=== PATIENT | male | born 1945 | race Caucasian/White ===

== ENCOUNTER 2016-10-07 17:04 | Inpatient (IN) | payer MEDICARE, OTHER ==
--- NOTE | ~2016-10-07 | CN ---
Consultation Report [facility] [address] [place]. [address] NAME: ALEXANDER LUNA : 45 STATUS : ADM Dede PAT#: [id number] AGE: 71 ADM/REG DATE : 10/07/16 MR#: [id number] REPORT SERV DATE: 10/08/16 DICTATED BY: ROSALIO HERNANDES DATE: 10/08/16 REPORT STATUS : Draft TRANSCRIBED BY: MODDontae DATE: 10/08/16 CONSULTATION NOTE DATE OF CONSULTATION: REASON FOR CONSULTATION: Consult coming from Cintia Camarena for abdominal pain and Parkinson. HISTORY OF PRESENT ILLNESS: The patient has a history of Parkinson's and has been following up with a neurologist who specializes in Parkinson's. He was tried on several medications before and now he is on carbidopa-levodopa. The patient has been having chest pains for about a week now and poor appetite and fatigue. He said that the pain is dull, but sometimes becoming sharp, associated with shortness of breath. The chart is saying that he was having some abdominal pain, and when I kept on asking this, they keep on denying it and the actually got rattled and said it has always been the chest and that is why we are here. The patient has a history of constipation and has been taking medications for it. His last bowel movement was yesterday and it was hard. There was no note of any nausea or vomiting. There is some cough and occasional shortness of breath. The patient has some nausea, but no vomiting. There is no loss of consciousness, fever, chills, or urinary changes. REVIEW OF SYSTEMS: The rest of the 14-point review of systems is negative except as above. Of note, the patient went to the [place], and he was sent here for further evaluation and was admitted to the [facility]. PAST MEDICAL HISTORY: Includes Parkinson's, anxiety, partial colectomy for polyps, appendectomy, and bilateral hernia repair. ALLERGIES: HE HAS NO KNOWN DRUG ALLERGIES. MEDICATIONS: Include Aricept, Zoloft, turmeric capsule, and carbidopa-levodopa. FAMILY HISTORY: Dad had an AL and bypass in his 60s and cancer and in his 90s. SOCIAL HISTORY: The patient does not smoke, drink, or use recreational drugs. PHYSICAL EXAMINATION: GENERAL: The patient is alert and oriented x3, not in cardiopulmonary distress. VITAL SIGNS: His vital signs include a saturation of 94% on room air, blood pressure of 149/65, temperature of 98.2, pulse rate of 87, and respiration of 22. HEENT: One [place] conjunctivae. Anicteric sclerae. No pharyngeal erythema. NECK: He has supple neck. No JVD or carotid bruits. No lymphadenopathy. LUNGS: He has clear lungs. No rales. No wheezes. Consultation Report [address] [place]. [address] NAME: ALEXANDER LUNA : 45 STATUS : ADM Dede PAT#: [id number] AGE: 71 ADM/REG DATE : 10/07/16 MR#: [id number] REPORT SERV DATE: 10/08/16 DICTATED BY: ROSALIO HERNANDES DATE: 10/08/16 REPORT STATUS : Draft TRANSCRIBED BY: MAURICIO DATE: 10/08/16 CARDIOVASCULAR: Regular rate and rhythm. No murmurs appreciated. ABDOMEN: Positive bowel sounds. Soft and nontender. No masses fair pulses. No edema. NEURO: Exam is nonlocalizing, however, he does have tremors, mainly in his upper extremities, right greater than the left. LABORATORY DATA: Reveals a chemistry, TSH, troponin, and CBC all within normal limits except for a mild normocytic anemia with an H and H of 10.6 and 31.9. CAT scan shows cardiomegaly, pericardial effusion and pleural effusions with atelectatic lung on the left side, minimal inflammatory changes suggested in the right upper quadrant and on some bowel loops, no mechanical obstruction, slightly prominent appearance of the gallbladder, multiple hepatic cysts. ASSESSMENT: 1. Chest pain. 2. Pericardial effusion. 3. Bilateral pleural effusions. 4. Prominence of the gallbladder, questionable abdominal pain. 5. Parkinson's. PLAN: I would defer the cardiac problems to you. The patient and family denies abdominal pain at present, my physical exam and CT scans are unremarkable except for some prominence of the gallbladder wall. We will check the LFTs and observe for now. The patient already seeing a Parkinson's specialist and has tried several medications before. We would continue the present levodopa-carbidopa and have him follow up with neurologist. Thank you for the consult. I will follow the patient with you. DAVID/MAURICIO Rosalio Hernandes M.D. / [id number] CC: Cintia Camarena, STEFANY, DISTANCE LEARNING UNIT LEADER-BC John Palomino MD
--- NOTE | ~2016-10-07 | HP ---
History And Physical [id number] [facility] [place]. [address] NAME: ALEXANDER LUNA : 45 STATUS : ADM Dede PAT#: [id number] AGE: 71 ADM/REG DATE : 10/07/16 MR#: [id number] REPORT SERV DATE: 10/08/16 DICTATED BY: BERNICE QUAN DATE: 10/08/16 REPORT STATUS : Draft TRANSCRIBED BY: MODDontae DATE: 10/08/16 DATE OF ADMISSION: 10/07/2016 NEUROLOGY: Reese Rosado M.D. for Parkinson's, [facility]. CHIEF COMPLAINT: Epigastric and chest discomfort. HISTORY OF PRESENT ILLNESS: A very pleasant 71-year-old white gentleman with no known history of CAD, followed at the [facility] and in [place], [place], for his Parkinson's every three months, presents to our facility with vague complaints of episodic epigastric pain and episodes of chest pressure with his daughter who is present at bedside provides much of the information as well as the patient. There is a report of two weeks of poor appetite, fatigue, and the patient reports recent indigestion for which he has taken Tums with little improvement. The patient also indicates on his lower left chest episodes of chest pain that apparently are persistent. His daughter reports that on the past two Sundays at Friday dinner he has had no appetite, has eaten poorly. She reports he has been fatigued, pale, and at times has had "blue lips." The patient describes his chest pain as a "needle in my left side that goes through the middle of my stomach." He also indicates with two fingers a pinpoint area of his left chest that is at times worse with a cough and not reproducible on exam. When asked to rate his chest pain on a scale of 1-10, he states it is "pretty jamil." He denies any recent fall. No recent nausea or vomiting. He does state that he had a "dark solid stool last night" while here at the hospital, but denies any mae bleeding, although he does state that he has a history of hemorrhoids. The patient was taken to the local [facility] yesterday for a checkup given his these longstanding complaints. He was there from 0930 hours to 1530 hours at some point they performed an EKG and felt it more prudent that he come to the emergency room for further evaluation and treatment. The patient denies any personal history of myocardial infarction, stroke, DVT, or pulmonary embolus. The patient denies any recent fever or chills. No palpitations. No syncopal episodes. Denies PND or orthopnea. PAST MEDICAL HISTORY: 1. Parkinson's. 2. Anxiety. 3. Denies hypertension, dyslipidemia, or diabetes. 4. Positive family history for early CAD. PAST SURGICAL HISTORY: 1. Partial colectomy secondary to polyps. 2. Appendectomy. 3. Hernia repair. SOCIAL HISTORY: He is with three children. He is a retired maintenance team leader. Does not have a structured exercise routine, although he is active. Denies tobacco, alcohol, or illicits. History And Physical [address] [address] NAME: ALEXANDER LUNA : 45 STATUS : ADM Dede PAT#: [id number] AGE: 71 ADM/REG DATE : 10/07/16 MR#: [id number] REPORT SERV DATE: 10/08/16 DICTATED BY: BERNICE QUAN DATE: 10/08/16 REPORT STATUS : Draft TRANSCRIBED BY: MAURICIO DATE: 10/08/16 FAMILY HISTORY: Father with a heart attack and bypass in his 60s with a history of cancer in his 90s. REVIEW OF SYSTEMS: A 14-point review of systems performed, significant for HPI including snores per report with no formal sleep study. Reports his home dry weight of 165 pounds, although he states he may have lost approximately 5 pounds due to poor appetite recently. Otherwise, complete review of systems obtained and negative. ALLERGIES: NO KNOWN DRUG ALLERGIES. HOME MEDICATIONS: 1. Aricept 5 mg nightly. 2. Zoloft 200 mg daily. 3. Turmeric capsule daily. 4. Carbidopa 100 mg three times daily. PHYSICAL EXAMINATION: BLOOD PRESSURE: Bilateral blood pressures on arrival, right 112/64 and left 107/64, this morning 119/71. PULSE: 82. RESPIRATORY RATE: 16. TEMPERATURE: 98.2. O2 saturation 95% on room air. HEIGHT: 6 feet 0 inches. WEIGHT: 165 pounds. BMI: 22. GENERAL: Cooperative, in no apparent distress. HEENT: Pupils 2 mm. Sclera nonicteric. Nares patent. Moist mucous membranes. No xanthelasma. NECK: Trachea midline. No thyromegaly. No JVD. No bruits. LYMPH: No cervical lymphadenopathy. No supraclavicular lymphadenopathy. RESPIRATORY: Unlabored respirations. Breath sounds clear bilaterally to posterior auscultation. No wheezes or rhonchi. CARDIOVASCULAR: Regular rate. Extremities without edema. Pulses 2+ bilaterally. 1 to 2/6 murmur at the apex left midclavicular line. ABDOMEN: Soft, nontender, and nondistended. Normal bowel sounds auscultated throughout. No organomegaly. Firm to palpation on exam. SKIN: Warm and dry extremities. No pallor or cyanosis. PSYCHIATRIC: Appropriate affect. Alert and oriented x3. NEURO: Tremors activity bilateral upper extremities. Alert oriented x3. LABORATORY DATA: Troponin less than 0.02 x3. Potassium 3.7, BUN 17, creatinine 0.93, glucose 111, and magnesium 2.2. BNP 147.5. WBC 7.7, hemoglobin 9.9, hematocrit 29.8 (no previous labs for comparison), and platelet count 290. EKG sinus rhythm. Nonspecific T-waves. ASSESSMENT AND PLAN: 1. Atypical chest pain. The patient has been observed in the short-stay, three sets of cardiac markers negative. EKG appears stable. The patient will be held n.p.o. for History And Physical [address] [address] NAME: ALEXANDER LUNA : 45 STATUS : ADM Dede PAT#: [id number] AGE: 71 ADM/REG DATE : 10/07/16 MR#: [id number] REPORT SERV DATE: 10/08/16 DICTATED BY: BERNICE QUAN DATE: 10/08/16 REPORT STATUS : Draft TRANSCRIBED BY: MODL DATE: 10/08/16 now. I will discuss with rounding certified professional coder the need for further cardiac testing. Further recommendations forthcoming. 2. Murmur. We will check an echocardiogram today. 3. Epigastric discomfort. I will check amylase and lipase. Check a CT of abdomen and pelvis without contrast. Recheck an H and H, guaiac stools. 4. Parkinson's. Safety measures in place. Continue home medications. 5. We will discuss all with rounding certified professional coder and further recommendations forthcoming. MARIELA/MAURICIO STEFANY Ch, RADIATOR SPECIALIST-BC / [id number] CC: STEFANY Ch, RADIATOR SPECIALIST-BC John Palomino MD
--- NOTE | ~2016-10-07 | DS ---
Discharge Summary [id number] [place]. [address] NAME: ALEXANDER LUNA : 45 STATUS : DIS IN PAT#: [id number] AGE: 71 ADM/REG DATE : 10/10/16 MR#: [id number] REPORT SERV DATE: 10/12/16 DICTATED BY: ROSALIO HERNANDES DATE: 10/11/16 REPORT STATUS : Draft TRANSCRIBED BY: MODL DATE: 10/11/16 ADMISSION DATE: 10/10/2016 DISCHARGE DATE: 10/11/2016 FINAL DIAGNOSES: 1. Bilateral pleural effusion, questionable etiology, status post left thoracentesis. 2. Pericardial effusion. 3. Chest pain secondary to above. 4. Parkinson's. 5. Anxiety. DIAGNOSTIC EXAMS: Chest x-ray showing left basilar consolidation with left pleural effusion, cardiomegaly. CTA of the chest showing respiratory motion degraded exam, limiting assessment of segmental and subsegmental pulmonary arteries in the bilateral lower lung murry. No definite pulmonary embolism. Cardiomegaly with moderate large pericardial effusion up to 2.3 cm in diameter along the right atrium, bibasilar near segmental size atelectasis with underlying small pleural effusion. CAT scan of the abdomen and pelvis showing cardiomegaly, pericardial effusion and pleural effusion with atelectatic lung on the left side. Minimal inflammatory changes suggested in the right upper quadrant around some bowel loops, no mechanical obstruction, slightly prominent appearance of the gallbladder, multiple hepatic cysts. Abdominal ultrasound, sonographic normal appearance of the gallbladder, increased right cortical echotexture is compatible with a component of medical renal disease, benign hepatic cyst. Echocardiogram showing low normal left ventricular systolic function with EF of 50%, dilated right-sided structures with preserved systolic function, mild pulmonary hypertension with mild tricuspid regurg, small pericardial effusion without hemodynamic significance, large left-sided pleural effusion, mildly elevated right atrial and central venous pressures. Chest x-ray post thoracentesis showing cardiomegaly, small amount of left pleural effusion and atelectasis. HOSPITAL COURSE: Please refer to the H and P done by myself dated on 10/08/2016. Briefly, this is a 71-year-old male with a history of Parkinson's and a history of previous pericardial effusion. He has been having chest pains for about a week with poor appetite and fatigue. The patient was then admitted through the [facility] and they did the above tests because of the echo showing only minimal pericardial effusion with no hemodynamic compromise. They transferred the patient to my service. We got a thoracentesis of the left side which yielded 450 mL of fluid which is borderline exudate. We checked for pathology which was negative for malignancy and negative for infection. The patient got relief afterwards and with the remaining pain on pleurisy improves on ibuprofen. We sent for an RA that was negative. KATHY is still pending at this time. He did not have any fever, chills, sweats, and the vital signs remained stable and saturating at 95% on room air. The patient is doing better after the thoracentesis with no evidence of any pneumothorax. I discussed the case with the patient, and daughter and they agree that the patient is ready to go home, however, they are requesting for outpatient followup outside of the [place]. I am going to have my pillowcase maker arrange for a followup with Dr. Wayne of Cardiology in a month's time with repeat echocardiogram prior to the followup. Follow up with our Pulmonary Clinic here in [facility] in about a month and also with Neurology with [facility] or Dr. Hung Summary [address] [address] NAME: ALEXANDER LUNA : 45 STATUS : DIS IN PAT#: [id number] AGE: 71 ADM/REG DATE : 10/10/16 MR#: [id number] REPORT SERV DATE: 10/12/16 DICTATED BY: ROSALIO HERNANDES. DATE: 10/11/16 REPORT STATUS : Draft TRANSCRIBED BY: MAURICIO DATE: 10/11/16 Austin valadez Douglas in about a month. The patient will need to follow up with his PCP in the [place], John Palomino in a week's time. The patient will now be discharged on the following medications: Sinemet 25/100 three times a day, Aricept 2.5 mg at bedtime, Zoloft 200 mg twice a day, ibuprofen 200 mg t.i.d. p.r.n. pleuritic chest pain, and Robitussin DM for cough. This has been explained to them at length. TIME SPENT: 40 minutes. DICTATED BY: Dotty James/MAURICIO Rosalio Hernandes M.D. / [id number] CC: Dotty James MD
[2016-10-07 18:34] LABS: BASOPHILS 0.4 %; BASOPHILS ABSOLUTE 0.03 10/3/uL (0.0-0.16); EOSINOPHILS 1.8 %; EOSINOPHILS ABSOLUTE 0.14 10/3/uL (0.0-0.53); ER CBC TAT 0 Hrs 03 Mins; HEMATOCRIT 29.8 % (40.0-51.0); HEMOGLOBIN 9.9 g/dL (13.6-17.8); IMMATURE GRANULOCYTES 0.4 %; IMMATURE GRANULOCYTES ABSOLUTE 0.03 10/3/uL (0.0-0.11); LYMPHOCYTES 14.3 %; LYMPHOCYTES ABSOLUTE 1.11 10/3/uL (0.67-4.30); MEAN CORPUS HGB CONC 33.2 g/dL (32.0-36.0); MEAN CORPUSCULAR HEMOGLOB 29.1 pg (26.0-34.0); MEAN CORPUSCULAR VOLUME 87.6 fL (80-100); MEAN PLATELET VOLUME 8.6 fL (9.2-13.0); MONOCYTES 14.1 %; MONOCYTES ABSOLUTE 1.09 10/3/uL (0.21-1.20); NEUTROPHILS ABSOLUTE 5.34 10/3/uL (2.02-8.40); PLATELET COUNT 290 10/3/uL (150-400); RBC DISTRIBUTION WIDTH 13.4 % (12.0-16.0); WHITE BLOOD CELLS 7.7 10/3/uL (4.5-10.5)
[2016-10-07 18:35] LABS: MANUAL DIFF NO %
[2016-10-07 18:42] LABS: INTERNATIONAL NORMAL RATI 1.3 UNITS (-); PROTIME (NOT ORD) 16.1 SEC (12.0-14.5)
[2016-10-07 18:43] LABS: PARTIAL THROMBO TIME 40.5 SEC (22.5-37.2)
[2016-10-07 18:50] LABS: BUN (BLOOD UREA NITROGEN) 16 MG/DL (6-23); CALCIUM, SERUM 8.4 MG/DL (8.5-10.4); CHEST PAIN PROFILE TAT 0 Hrs 19 Mins; CHLORIDE, SERUM 105 MMOL/L (96-112); CO2 (CARBON DIOXIDE) 31 MMOL/L (24-34); CREATININE 0.93 MG/DL (0.70-1.30); GFR AFRICAN AMERICAN 95 ML/MIN (>=60); GFR NON AFRICAN AMERICAN 82 ML/MIN (>=60); GLUCOSE, SERUM 124 MG/DL (60-99); POTASSIUM, SERUM 3.5 MMOL/L (3.5-5.3); SODIUM, SERUM 140 MMOL/L (135-148); TROPONIN I <0.02 NG/ML (<0.05)
[2016-10-07] MEDS ORDERED: ARICEPT5 PO (22:13)
[2016-10-07] MEDS ORDERED: ZOL100 PO (22:13)
[2016-10-07] MEDS ORDERED: TURMERIC PO (22:14)
[2016-10-07] MEDS ORDERED: CARBIDOPA-LEVODOPA PO (22:35)
[2016-10-08 04:52] LABS: BUN (BLOOD UREA NITROGEN) 17 MG/DL (6-23); CALCIUM, SERUM 8.4 MG/DL (8.5-10.4); CHLORIDE, SERUM 106 MMOL/L (96-112); CO2 (CARBON DIOXIDE) 28 MMOL/L (24-34); CREATININE 0.93 MG/DL (0.70-1.30); GFR AFRICAN AMERICAN 95 ML/MIN (>=60); GFR NON AFRICAN AMERICAN 82 ML/MIN (>=60); GLUCOSE, SERUM 111 MG/DL (60-99); POTASSIUM, SERUM 3.7 MMOL/L (3.5-5.3); SODIUM, SERUM 140 MMOL/L (135-148)
[2016-10-08 08:05] LABS: HEMATOCRIT 30.5 % (40.0-51.0); HEMOGLOBIN 10.2 g/dL (13.6-17.8)
[2016-10-08 10:35] LABS: FREE T4 1.02 NG/DL (0.76-1.46)
[2016-10-08] MEDS ORDERED: SIN25 PO (15:09)
[2016-10-08] MEDS ORDERED: ZOL100 PO (15:09)
[2016-10-08 15:55] LABS: HEMATOCRIT 31.9 % (40.0-51.0); HEMOGLOBIN 10.6 g/dL (13.6-17.8)
[2016-10-08 19:00] LABS: ALBUMIN 2.5 G/DL (3.5-5.0); ALKALINE PHOSPHATASE 91 U/L (45-117); SGOT(AST) 26 U/L (5-40); SGPT(ALT) 38 U/L (5-65); TOTAL BILIRUBIN 0.3 MG/DL (0-1.2); TOTAL PROTEIN 6.7 G/DL (6.0-8.5)
[2016-10-08 19:04] LABS: DIRECT BILIRUBIN < 0.1 MG/DL (0.0-0.4); INDIRECT BILIRUBIN(NOT ORDER) 0.2 MG/DL (0.1-0.9)
[2016-10-09 04:46] LABS: HEMATOCRIT 29.9 % (40.0-51.0); HEMOGLOBIN 10.1 g/dL (13.6-17.8)
[2016-10-09 05:03] LABS: BUN (BLOOD UREA NITROGEN) 15 MG/DL (6-23); CALCIUM, SERUM 8.2 MG/DL (8.5-10.4); CHLORIDE, SERUM 102 MMOL/L (96-112); CO2 (CARBON DIOXIDE) 27 MMOL/L (24-34); CREATININE 0.92 MG/DL (0.70-1.30); GFR AFRICAN AMERICAN 97 ML/MIN (>=60); GFR NON AFRICAN AMERICAN 83 ML/MIN (>=60); GLUCOSE, SERUM 94 MG/DL (60-99); POTASSIUM, SERUM 3.8 MMOL/L (3.5-5.3); SODIUM, SERUM 137 MMOL/L (135-148)
[2016-10-09 12:09] LABS: INTERNATIONAL NORMAL RATI 1.2 UNITS (-); PARTIAL THROMBO TIME 37.7 SEC (22.5-37.2); PROTIME (NOT ORD) 14.7 SEC (12.0-14.5)
[2016-10-09 15:06] LABS: GLUCOSE BODY FL (NOT ORD) 96 MG/DL; LDH BODY FLUID (NOT ORD) 79 U/L
[2016-10-09 16:18] LABS: BF TOTAL CELL CT (NOT ORD 1031 /MM3; BODY FLUID RBC (NOT ORD) 507 /MM3
[2016-10-09 16:27] LABS: BD FL LYMPH (NOT ORD) 16 %; BF BASO (NOT OF) 0 %; BF LARGE MONONUCLEAR 57 %; BODY FLUID EOS (NOT ORD) 0 %; BODY FLUID SEG (NOT ORD) 27 %
[2016-10-09 16:38] LABS: BD FL SOURCE (NOT ORD) THORACENTESIS
[2016-10-10 11:33] LABS: BASOPHILS 0.3 %; BASOPHILS ABSOLUTE 0.02 10/3/uL (0.0-0.16); EOSINOPHILS 2.1 %; EOSINOPHILS ABSOLUTE 0.16 10/3/uL (0.0-0.53); HEMATOCRIT 30.5 % (40.0-51.0); HEMOGLOBIN 10.1 g/dL (13.6-17.8); IMMATURE GRANULOCYTES 0.3 %; IMMATURE GRANULOCYTES ABSOLUTE 0.02 10/3/uL (0.0-0.11); LYMPHOCYTES 12.3 %; LYMPHOCYTES ABSOLUTE 0.96 10/3/uL (0.67-4.30); MEAN CORPUS HGB CONC 33.1 g/dL (32.0-36.0); MEAN CORPUSCULAR HEMOGLOB 29.2 pg (26.0-34.0); MEAN CORPUSCULAR VOLUME 88.2 fL (80-100); MEAN PLATELET VOLUME 8.1 fL (9.2-13.0); MONOCYTES 13.6 %; MONOCYTES ABSOLUTE 1.06 10/3/uL (0.21-1.20); NEUTROPHILS 71.4 %; NEUTROPHILS ABSOLUTE 5.56 10/3/uL (2.02-8.40); PLATELET COUNT 351 10/3/uL (150-400); RBC DISTRIBUTION WIDTH 13.4 % (12.0-16.0); RED CELL COUNT 3.46 10/6/uL (4.7-6.1); WHITE BLOOD CELLS 7.8 10/3/uL (4.5-10.5)
[2016-10-10 11:35] LABS: MANUAL DIFF NO %
[2016-10-10 11:47] LABS: BUN (BLOOD UREA NITROGEN) 15 MG/DL (6-23); CALCIUM, SERUM 8.5 MG/DL (8.5-10.4); CHLORIDE, SERUM 102 MMOL/L (96-112); CO2 (CARBON DIOXIDE) 31 MMOL/L (24-34); CREATININE 0.87 MG/DL (0.70-1.30); GFR AFRICAN AMERICAN 101 ML/MIN (>=60); GFR NON AFRICAN AMERICAN 87 ML/MIN (>=60); GLUCOSE, SERUM 106 MG/DL (60-99); POTASSIUM, SERUM 3.7 MMOL/L (3.5-5.3); SODIUM, SERUM 138 MMOL/L (135-148)
[2016-10-10 17:29] LABS: TOTAL PROTEIN 6.5 G/DL (6.0-8.5)
[2016-10-11 08:15] LABS: PROTEIN BODY FLUID 3.6 G/DL
[2016-10-11 09:59] LABS: ANA PATTERN SPECKLED
[2016-10-11] MEDS ORDERED: ADVIL (10:43)
[2016-10-11] MEDS ORDERED: GGEXPUD (10:43)
== END 2016-10-11 15:17 | disposition home or self-care (01) | DRG 187 ==
LOC: ER 17:04 → SSU1 21:56 → 7NO 10-09 16:53
PROVIDERS: Clinical Nurse Specialist; Emergency Medicine; Internal Medicine
PROC: 0W9B3ZZ Drainage of Left Pleural Cavity, Percutaneous Approach (ICD-10-PCS; principal; 2016-10-09)
DX: J90 Pleural effusion, not elsewhere classified (principal); I31.3 Pericardial effusion (noninflammatory); G20 Parkinson's disease; R07.89 Other chest pain; R10.13 Epigastric pain; I27.2 Other secondary pulmonary hypertension; F41.9 Anxiety disorder, unspecified; I36.1 Nonrheumatic tricuspid (valve) insufficiency
CPT/HCPCS: 32555; 71010; 71020; 71275; 74176; 76700; 80048; 80076; 82150; 82272; 82945; 83615; 83690; 83735; 83880; 84155; 84157; 84439; 84443; 84484; 85014; 85018; 85025; 85049; 85379; 85610; 85730; 86039; 86431; 87070; 87205; 88112; 88305; 89051; 93005; 93306; 99285; A9270-GY; Q9967